=== PATIENT | female | born 1975 | race Caucasian/White ===

== ENCOUNTER 2021-04-23 19:03 | Emergency (ER) | payer MEDICAID ==
--- NOTE | 2021-04-23 20:11 | NUR ---
CALLED FOR TRIAGE, NOT IN WAITING ROOM.
--- NOTE | 2021-04-23 20:16 | NUR ---
CALLED TO TRIAGE NOT IN WAITING ROOM.
--- NOTE | 2021-04-23 20:30 | NUR ---
CALLED FOR TRIAGE NOT IN WAITING ROOM.
== END 2021-04-23 21:37 | disposition left against medical advice (07) ==
LOC: ER 19:08
DX: Z53.21 Procedure and treatment not carried out due to patient leaving prior to being seen by health care provider (principal)

== ENCOUNTER 2021-11-07 10:51 | Emergency (ER) | payer MEDICAID ==
[~2021-11-07] VITALS: Ht 165.1 cm; Wt 63.5 kg
[2021-11-07 11:18] VITALS: BP 129/74
== END 2021-11-07 11:45 | disposition home or self-care (01) ==
LOC: ER 11:11
DX: M79.10 Myalgia, unspecified site (principal); Z59.00 Homelessness unspecified